=== PATIENT | male | born 1990 | race Caucasian/White ===

== ENCOUNTER → 2023-11-04 14:32 | Outpatient (BNVA) | payer MEDICAID, SELFPAY | DX: E55.9 Vitamin D deficiency, unspecified (principal); F32.A Depression, unspecified | CPT/HCPCS: 80053; 80061; 82306; 85025 ==

== ENCOUNTER 2024-05-19 08:35 | Outpatient (CLI) | payer MEDICAID, SELFPAY ==
--- NOTE | 2024-05-19 09:00 | CT_ITS ---
WS: [id number] CT HEAD TECHNIQUE: Noncontrast and contrast-enhanced CT of the head. CLINICAL INFORMATION: migraine, hit head COMPARISON: None. DLP: 2017.[address] scans at [facility] use at least one of these dose optimization techniques: automated exposure control; mA and/or kV adjustment per patient size (includes targeted exams where dose is matched to clinical indication); or iterative reconstruction. FINDINGS: No evidence of intracranial hemorrhage or mass effect. Ventricular system and basal cisterns are patent. Normal martinez-white differentiation. No hydrocephalus. No extra-axial fluid collections. No abnormal intracranial enhancement. Paranasal sinuses and mastoid air cells are well aerated. No other suspicious findings. CT/CT head wo/w con [id number] IMPRESSION: 1. No evidence ventricular hemorrhage or mass effect. 2. No abnormal intracranial enhancement. 3. No acute intracranial findings.
[2024-05-19] MEDS: iohexol 350 mg/mL 500 mL Btl (per mL) IV (09:05)
== END 2024-05-19 08:36 | disposition home or self-care (01) ==
LOC: RAD 08:38
DX: G43.109 Migraine with aura, not intractable, without status migrainosus (principal)
CPT/HCPCS: 70470

== ENCOUNTER → 2024-10-24 12:17 | Outpatient (BNVA) | payer BC, SELFPAY | PROVIDERS: Visit Provider Psychiatry & Neurology Neurology | DX: G43.109 Migraine with aura, not intractable, without status migrainosus (principal) | CPT/HCPCS: 36415; 82306; 82607; 82746; 83735; 83921; 84439; 84443 ==